=== PATIENT | male | born 1995 | race Hispanic/Latino ===

== ENCOUNTER 2022-04-23 14:13 | Emergency (ER) | payer MEDICAID ==
[~2022-04-23] VITALS: Ht 185.4 cm; Wt 79.5 kg
[2022-04-23 14:18] VITALS: BP 136/94
[2022-04-23 14:30] VITALS: BP 125/84
[2022-04-23 14:49] LABS: HEMOGLOBIN 14.7 g/dl (14.0-18.0); IMMATURE GRANULOCYTES 0.1 % (0.0-5.0); MEAN CELL VOLUME 92.6 fL CALC (80.0-100.0); MEAN CORPUSCULAR HGB 30.2 pG CALC (26.0-32.0); MEAN CORPUSCULAR HGB CONC 32.7 g/dL CAL (32.0-36.0); NEUT# 5.96 thou/uL (1.82-7.42); RED BLOOD COUNT 4.86 mill/uL (4.70-6.10); RED CELL DISTRI WIDTH 12.3 % (11.5-15.5)
[2022-04-23 14:54] LABS: ALBUMIN 3.9 g/dL (3.2-5.0); ALKALINE PHOSPHATASE 62 u/l (38-126); ANION GAP 10 (6-22 (CALC)); BILIRUBIN, TOTAL 0.3 mg/dL (0.0-1.4); BUN 14 mg/dL (9-20); BUN/CREATININE RATIO 15 (12-20 (CALC)); CARBON DIOXIDE 33 mmol/l (22-30); CHLORIDE 103 mmol/l (95-108); CREATININE 0.9 mg/dL (0.7-1.3); GFR FOR AFR.AMER. > 60 ML/MIN (>=60 (CALC)); GFR OTHER RACES > 60 ML/MIN (>=60 (CALC)); LIPASE 31 u/l (23-300); POTASSIUM 4.2 mmol/l (3.5-5.1); SGOT/AST 32 u/l (17-59); SODIUM 141 mmol/l (137-146); TOTAL PROTEIN 6.9 g/dL (6.3-8.2)
[2022-04-23 15:00] VITALS: BP 127/81
[2022-04-23 15:30] VITALS: BP 119/84
[2022-04-23 16:00] VITALS: BP 123/77
[2022-04-23] MEDS ORDERED: METHOCARBAMOL500 MG PO (16:03)
[2022-04-23] MEDS ORDERED: NAPROXEN500 MG PO (16:03)
== END 2022-04-23 16:20 | disposition home or self-care (01) ==
LOC: ED 14:13
PROVIDERS: Nurse Practitioner
DX: M94.0 Chondrocostal junction syndrome [Tietze] (principal); I10 Essential (primary) hypertension

== ENCOUNTER 2022-07-18 19:09 | Emergency (ER) | payer MEDICAID ==
[~2022-07-18] VITALS: Ht 185.4 cm; Wt 60.0 kg
[~2022-07-18 19:09] MED LIST: METHOCARBAMOL500 MG PO; NAPROXEN500 MG PO
[2022-07-18] MEDS ORDERED: GENTAMICIN SULF5 ML OS (20:53)
[2022-07-18 21:11] VITALS: BP 110/72
== END 2022-07-18 21:11 | disposition home or self-care (01) ==
LOC: ED 19:09
DX: T15.02XA Foreign body in cornea, left eye, initial encounter (principal); I10 Essential (primary) hypertension; X58.XXXA Exposure to other specified factors, initial encounter; Y93.H2 Activity, gardening and landscaping; Y92.89 Other specified places as the place of occurrence of the external cause; Y99.0 Civilian activity done for income or pay

== ENCOUNTER 2022-12-08 22:55 | Emergency (ER) | payer MEDICAID ==
[~2022-12-08] VITALS: Ht 185.4 cm; Wt 72.5 kg
[~2022-12-08 22:55] MED LIST changes: +GENTAMICIN SULF5 ML OS
[2022-12-08 23:16] VITALS: BP 172/84
[2022-12-08 23:28] VITALS: BP 142/98
[2022-12-08 23:31] VITALS: BP 138/93
[2022-12-08 23:38] LABS: BASO% 0.4 % (0-3); EOS% 0.7 % (0-8); HEMATOCRIT 46.1 % (39.0-50.0); HEMOGLOBIN 14.9 g/dl (14.0-18.0); IMMATURE GRANULOCYTES 0.2 % (0.0-5.0); LYMPH% 43.7 % (15-41); MEAN CELL VOLUME 90.6 fL CALC (80.0-100.0); MEAN CORPUSCULAR HGB 29.3 pG CALC (26.0-32.0); MEAN CORPUSCULAR HGB CONC 32.3 g/dL CAL (32.0-36.0); MONO% 5.3 % (2-13); NEUT# 5.67 thou/uL (1.82-7.42); NEUT% 49.7 % (42-76); RED BLOOD COUNT 5.09 mill/uL (4.70-6.10); RED CELL DISTRI WIDTH 11.6 % (11.5-15.5)
[2022-12-08 23:45] VITALS: BP 128/83
[2022-12-08 23:55] LABS: ALBUMIN 4.8 g/dL (3.2-5.0); ALKALINE PHOSPHATASE 65 u/l (38-126); BUN 18 mg/dL (9-20); BUN/CREATININE RATIO 18 (12-20 (CALC)); CARBON DIOXIDE 27 mmol/l (22-30); CHLORIDE 103 mmol/l (95-108); ETHYL ALCOHOL 0 mg/dl (0-30); GFR FOR AFR.AMER. > 60 ML/MIN (>=60 (CALC)); GFR OTHER RACES > 60 ML/MIN (>=60 (CALC)); SGOT/AST 29 u/l (17-59); SODIUM 141 mmol/l (137-146); TOTAL PROTEIN 8.2 g/dL (6.3-8.2)
[2022-12-09] VITALS (23 sets, daily range): BP systolic 90–141; BP diastolic 44–81
[2022-12-09] LABS: ANION GAP 15 (6-22 (CALC)); BILIRUBIN, TOTAL 0.3 mg/dL (0.2-1.3); POTASSIUM 3.7 mmol/l (3.5-5.1)
[2022-12-09 02:34] LABS: URINE BILIRUBIN - DIPSTICK NEGATIVE (NEGATIVE); URINE BLOOD DIPSTICK NEGATIVE (NEGATIVE); URINE COLOR YELLOW; URINE GLUCOSE - DIPSTICK NEGATIVE (NEGATIVE); URINE KETONE NEGATIVE (NEGATIVE); URINE PROTEIN - DIPSTICK NEGATIVE (NEG-TRACE); URINE SPECIFIC GRAVITY <=1.005; URINE UROBILINOGEN - DIPSTICK 0.2 E.U./dL (0.2)
[2022-12-09 02:40] LABS: URINE LEUK ESTERASE SMALL (NEGATIVE); URINE NITRITE - DIPSTICK NEGATIVE (Negative)
[2022-12-09 03:08] LABS: URINE MUCUS FEW hpf (NONE-FEW); URINE SQUAMOUS EPITHELIAL CELL FEW EPI/hpf (0-FEW)
== END 2022-12-09 05:40 | disposition home or self-care (01) ==
LOC: ED 22:55
PROVIDERS: Family Medicine
DX: R11.0 Nausea (principal); R00.0 Tachycardia, unspecified; T40.715A Adverse effect of cannabis, initial encounter; I10 Essential (primary) hypertension
CPT/HCPCS: J2060

== ENCOUNTER 2024-07-02 23:06 | Emergency (ER) | payer OTHER ==
[~2024-07-02] VITALS: Ht 182.9 cm; Wt 70.0 kg
[~2024-07-02 23:06] MED LIST changes: +PERCOCET 5/325M1 TAB PO; +PREDNISONE2.5 MG PO
[2024-07-03] MEDS ORDERED: LORazepam 2 MG/ML IM ONE (00:35)
[2024-07-03 00:58] LABS: BASO% 0.2 % (0-3); EOS% 0.6 % (0-8); HEMATOCRIT 41.4 % (39.0-50.0); HEMOGLOBIN 14.1 g/dl (14.0-18.0); IMMATURE GRANULOCYTES 0.1 % (0.0-5.0); LYMPH% 10.4 % (15-41); MEAN CELL VOLUME 90.6 fL CALC (80.0-100.0); MEAN CORPUSCULAR HGB 30.9 pG CALC (26.0-32.0); MEAN CORPUSCULAR HGB CONC 34.1 g/dL CAL (32.0-36.0); MONO% 6.4 % (2-13); NEUT# 10.32 thou/uL (1.82-7.42); NEUT% 82.3 % (42-76); RED BLOOD COUNT 4.57 mill/uL (4.70-6.10)
[2024-07-03 01:10] LABS: ALBUMIN 4.2 g/dL (3.2-5.0); ALKALINE PHOSPHATASE 64 u/l (38-126); ANION GAP 12 (6-22 (CALC)); BILIRUBIN, TOTAL 0.6 mg/dL (0.2-1.3); BUN 19 mg/dL (9-20); BUN/CREATININE RATIO 18 (12-20 (CALC)); CARBON DIOXIDE 27 mmol/l (22-30); CHLORIDE 103 mmol/l (95-108); ESTIMATED GFR 105 ML/MIN (>=90 (CALC)); ETHYL ALCOHOL 0 mg/dl (0-30); POTASSIUM 3.6 mmol/l (3.5-5.1); SGOT/AST 31 u/l (17-59); SODIUM 138 mmol/l (137-146); TOTAL PROTEIN 6.9 g/dL (6.3-8.2)
[2024-07-03 02:19] LABS: URINE BILIRUBIN - DIPSTICK Negative (NEGATIVE); URINE BLOOD DIPSTICK Negative (NEGATIVE); URINE COLOR Yellow; URINE GLUCOSE - DIPSTICK Negative (NEGATIVE); URINE KETONE 15 mg/dL (NEGATIVE); URINE LEUK ESTERASE Negative (NEGATIVE); URINE NITRITE - DIPSTICK Negative (Negative); URINE PH 7.5 (4.5-8.0); URINE PROTEIN - DIPSTICK Negative (NEG-TRACE); URINE UROBILINOGEN - DIPSTICK 0.2 E.U./dL (0.2)
[2024-07-03 03:40] VITALS: BP 127/81
== END 2024-07-03 03:40 | disposition designated cancer center or children's hospital (05) | DRG 880 ==
LOC: ED 23:06
PROVIDERS: Family Medicine
DX: R45.851 Suicidal ideations (principal); F41.9 Anxiety disorder, unspecified; F15.10 Other stimulant abuse, uncomplicated; I10 Essential (primary) hypertension; Z20.822 Contact with and (suspected) exposure to COVID-19
CPT/HCPCS: J2060

== ENCOUNTER 2024-07-17 19:59 | Emergency (ER) | payer OTHER ==
[~2024-07-17] VITALS: Ht 182.9 cm; Wt 72.0 kg
[2024-07-17 20:30] VITALS: BP 137/93
== END 2024-07-17 20:30 | disposition left against medical advice (07) | DRG 951 ==
LOC: ED 19:59
DX: Z53.21 Procedure and treatment not carried out due to patient leaving prior to being seen by health care provider (principal)

== ENCOUNTER 2024-08-30 07:29 | Emergency (ER) | payer OTHER ==
[~2024-08-30] VITALS: Ht 182.9 cm; Wt 72.0 kg
[2024-08-30] VITALS (26 sets, daily range): BP systolic 112–144; BP diastolic 63–100
[2024-08-30] MEDS ORDERED: MORPHINE SULFATE 4 MG/ML VIAL IV ONE (07:55)
[2024-08-30] MEDS ORDERED: ONDANSETRON HCl 4 MG/2 ML SDV IV ONE (07:55)
[2024-08-30] MEDS ORDERED: KETOROLAC TROMETHAMINE 30 MG/ML SDV IV ONE (08:45)
[2024-08-30] MEDS ORDERED: TRAMADOL HYDROC50 M1 PO (08:54)
[2024-08-30] MEDS ORDERED: EC-NAPROXEN500 MG PO (08:54)
[2024-08-30] MEDS ORDERED: HYDROmorphone HCL 2 MG/AMP IV ONE ×2 (09:30→10:30)
[2024-08-30] MEDS ORDERED: SODIUM CHLORIDE 0.9% 1,000 ML IV SCH (12:25)
[2024-08-30] MEDS ORDERED: PROPOFOL 200 MG/20 ML VIAL IV ONE (17:55)
== END 2024-08-30 13:40 | disposition home or self-care (01) ==
LOC: ED 07:29
DX: M24.312 Pathological dislocation of left shoulder, not elsewhere classified (principal); I10 Essential (primary) hypertension
CPT/HCPCS: J1171; J2405